=== PATIENT | male | born 1955 | race Caucasian/White ===

== ENCOUNTER 2017-03-22 11:46 | Inpatient (IN) | payer OTHER ==
[~2017-03-22] VITALS: Ht 185.4 cm; Wt 153.3 kg
[~2017-03-22 11:46] MED LIST: ACETAMINOPHEN/H1 TA6 PO; APAP/HYDROCODON1 T13 PO; ASPIRIN81 MG PO; BACO TOP; BAY PO; CEFTIN500 MG PO; CIPRO250 MG PO; COL100 PO; COUMADIN1 MG; DIF100 PO; DUONEB3 ML NEB; ECO81 PO; EPOETIN ALFA SQ; FER300 PO; HEP5I SC; HIBICLENS118 ML TOP; IPRATROPIUM BROM3 M2 INH; LABETALOL HCL200 MG PO; LAC PO; LEV250 PO; LEVOTHYROXIN0.025 M2 PO; LEXAPRO10 MG PO; LOT1C TOP; NEP PO; PHOS PO; PHOSLO667 MG PO; PRI20 PO; ROC25 PO; SIMVASTATIN20 M1 PO; SYN25 PO; SYNTHROID0.025 MG PO; VITAMIN D1000 I1 PO; VITAMIN-D1000 IU PO; ZOC20 PO; ZOSYN2.25 GM/50 IV; [UNRECOGNIZED DRUG - OTHER] SQ
[2017-03-22 12:41] LABS: BASOPHIL % 0.5 % (0-2); PLATELET COUNT 229 x10^3mcL (130-400)
[2017-03-22 12:50] LABS: AMPHETAMINE QUAL UR NONE DETECTED (NEG <=1000)
[2017-03-22 12:53] LABS: microscopic required? YES; urine erythrocyte 1+ (NEGATIVE)
[2017-03-22 13:03] LABS: ALBUMIN 3.5 g/dL (3.4-5.0); BILIRUBIN TOTAL 0.5 mg/dL (0.20-1.00); CALCIUM 9.1 mg/dL (8.5-10.1); CARBON DIOXIDE 34.9 mmol/L (21-32); MAGNESIUM 2.2 mg/dL (1.8-2.4); POTASSIUM SERUM 3.9 mmol/L (3.5-5.1); TOTAL PROTEIN, SERUM 7.9 g/dL (6.4-8.2)
[2017-03-22 13:04] LABS: CREATININE SERUM 5.8 mg/dL (0.7-1.3)
[2017-03-22 13:06] LABS: RED CELL DISTRIBUTION WIDTH 18.2 % (11.5-14.5)
[2017-03-22] MEDS ORDERED: NORCO1 TA2 PO ×2 (15:06→15:13)
[2017-03-22] MEDS ORDERED: ACIDOPHILUS-PE1 EAC2 PO (15:06)
[2017-03-22] MEDS ORDERED: ALBUTEROL SULFAT3 ML NEB (15:07)
[2017-03-22] MEDS ORDERED: D-20001 TAB PO (15:08)
[2017-03-22] MEDS ORDERED: C500500 MG PO (15:08)
[2017-03-22] MEDS ORDERED: MASON NATURAL1000 IU PO (15:08)
[2017-03-22] MEDS ORDERED: ASPIR 8181 MG PO (15:08)
[2017-03-22] MEDS ORDERED: LABETALOL HYDR300 MG PO (15:09)
[2017-03-22] MEDS ORDERED: PHOSLO667 MG PO (15:09)
[2017-03-22] MEDS ORDERED: SIMVASTATIN20 M1 PO (15:09)
[2017-03-22] MEDS ORDERED: LEVOTHYROXIN0.025 M2 PO (15:10)
[2017-03-22] MEDS ORDERED: TYLENOL325 M1 PO (15:10)
[2017-03-22 15:40] VITALS: Ht 185.4 cm; Wt 153.3 kg
[2017-03-22 16:06] VITALS: BP 135/70
[2017-03-22 16:41] VITALS: BP 135/70
[2017-03-22 20:38] VITALS: BP 129/75
[2017-03-23 05:31] VITALS: BP 132/75
[2017-03-23 07:28] LABS: PLATELET COUNT 203 x10^3mcL (130-400)
[2017-03-23 07:36] LABS: BASOPHIL % 0 % (0-2); RED CELL DISTRIBUTION WIDTH 18.2 % (11.5-14.5)
[2017-03-23 07:46] LABS: CALCIUM 8.8 mg/dL (8.5-10.1); CARBON DIOXIDE 26.4 mmol/L (21-32); POTASSIUM SERUM 4.6 mmol/L (3.5-5.1)
[2017-03-23 07:51] LABS: CREATININE SERUM 6.8 mg/dL (0.7-1.3)
[2017-03-23 08:53] VITALS: BP 119/60
[2017-03-23 14:05] VITALS: BP 117/60
[2017-03-23 17:39] VITALS: BP 120/52
[2017-03-23 21:43] VITALS: BP 132/57
[2017-03-24 06:05] VITALS: BP 120/57
[2017-03-24 09:30] VITALS: BP 142/74
[2017-03-24 13:46] VITALS: BP 118/59
[2017-03-24 17:52] VITALS: BP 126/60
[2017-03-24 21:16] VITALS: BP 123/64
[2017-03-25 05:44] VITALS: BP 118/64
[2017-03-25 06:28] LABS: CALCIUM 8.4 mg/dL (8.5-10.1); CARBON DIOXIDE 25.8 mmol/L (21-32); POTASSIUM SERUM 4.3 mmol/L (3.5-5.1)
[2017-03-25 06:35] LABS: BASOPHIL % 0.1 % (0-2); PLATELET COUNT 185 x10^3mcL (130-400)
[2017-03-25 06:46] LABS: CREATININE SERUM 6.2 mg/dL (0.7-1.3)
[2017-03-25 07:03] LABS: RED CELL DISTRIBUTION WIDTH 19.2 % (11.5-14.5)
[2017-03-25 08:00] VITALS: BP 117/61
[2017-03-25 09:07] VITALS: BP 106/52
[2017-03-25 17:19] VITALS: BP 122/68
[2017-03-25 17:46] VITALS: BP 117/63
[2017-03-25 21:52] VITALS: BP 117/65
[2017-03-26 06:16] LABS: BASOPHIL % 0.2 % (0-2); PLATELET COUNT 163 x10^3mcL (130-400)
[2017-03-26 06:25] VITALS: BP 103/65
[2017-03-26 06:33] LABS: CALCIUM 8.2 mg/dL (8.5-10.1); CARBON DIOXIDE 30.5 mmol/L (21-32); POTASSIUM SERUM 3.6 mmol/L (3.5-5.1)
[2017-03-26 06:44] LABS: CREATININE SERUM 5.2 mg/dL (0.7-1.3)
[2017-03-26 07:21] LABS: RED CELL DISTRIBUTION WIDTH 18.7 % (11.5-14.5)
[2017-03-26 10:47] VITALS: BP 100/53
[2017-03-26] MEDS ORDERED: LEV500PM IV (12:05)
[2017-03-26] MEDS ORDERED: LAC PO (12:06)
[2017-03-26] MEDS ORDERED: LEVAQUIN750 MG PO (12:10)
[2017-03-26 13:57] VITALS: BP 100/53
[2017-03-26 15:09] VITALS: BP 101/65
== END 2017-03-26 19:14 | DRG 137 ==
LOC: ED 11:46 → MU 15:01 → DU 15:01 → MU 03-24 11:31
PROVIDERS: Emergency Medicine; ADMIT Family Medicine
DX: J69.0 Pneumonitis due to inhalation of food and vomit (principal); N17.0 Acute kidney failure with tubular necrosis; J96.21 Acute and chronic respiratory failure with hypoxia; Z99.81 Dependence on supplemental oxygen; Z68.43 Body mass index [BMI] 50.0-59.9, adult; J45.901 Unspecified asthma with (acute) exacerbation; T83.511A Infection and inflammatory reaction due to indwelling urethral catheter, initial encounter; J44.1 Chronic obstructive pulmonary disease with (acute) exacerbation; I12.0 Hypertensive chronic kidney disease with stage 5 chronic kidney disease or end stage renal disease; N18.6 End stage renal disease; G47.33 Obstructive sleep apnea (adult) (pediatric); E78.5 Hyperlipidemia, unspecified; G89.29 Other chronic pain; Q63.1 Lobulated, fused and horseshoe kidney; M54.9 Dorsalgia, unspecified; Z79.82 Long term (current) use of aspirin; Z99.2 Dependence on renal dialysis; Z87.440 Personal history of urinary (tract) infections; Z87.891 Personal history of nicotine dependence; Z22.322 Carrier or suspected carrier of Methicillin resistant Staphylococcus aureus; Z88.8 Allergy status to other drugs, medicaments and biological substances; Z83.3 Family history of diabetes mellitus; Z82.49 Family history of ischemic heart disease and other diseases of the circulatory system; J96.22 Acute and chronic respiratory failure with hypercapnia; E66.01 Morbid (severe) obesity due to excess calories; D64.9 Anemia, unspecified
CPT/HCPCS: 36600; 82962; 83880; 97110-GP; 97116-GP; 97530-GP; J0885-EC; J1644; J1956; J2920; J2930; J7030; J7613; J7620; J7644

== ENCOUNTER 2017-03-27 12:46 | Observation (INO) | payer OTHER ==
[~2017-03-27] VITALS: Ht 185.4 cm; Wt 158.0 kg
[~2017-03-27 12:46] MED LIST changes: +ACIDOPHILUS-PE1 EAC2 PO; +ALBUTEROL SULFAT3 ML NEB; +ASPIR 8181 MG PO; +C500500 MG PO; +D-20001 TAB PO; +LABETALOL HYDR300 MG PO; +LEV500PM IV; +LEVAQUIN750 MG PO; +MASON NATURAL1000 IU PO; +NORCO1 TA2 PO; +TYLENOL325 M1 PO
[2017-03-27 13:08] LABS: BASOPHIL % 0.4 % (0-2); PLATELET COUNT 218 x10^3mcL (130-400)
[2017-03-27 13:11] LABS: RED CELL DISTRIBUTION WIDTH 18.5 % (11.5-14.5)
[2017-03-27 13:32] LABS: ALBUMIN 3.5 g/dL (3.4-5.0); BILIRUBIN TOTAL 0.51 mg/dL (0.20-1.00); CALCIUM 8.2 mg/dL (8.5-10.1); TOTAL PROTEIN, SERUM 7.2 g/dL (6.4-8.2)
[2017-03-27 13:54] LABS: CARBON DIOXIDE 30.3 mmol/L (21-32); POTASSIUM SERUM 3.6 mmol/L (3.5-5.1)
[2017-03-27 14:53] LABS: CREATININE SERUM 4.6 mg/dL (0.7-1.3)
[2017-03-27 16:38] VITALS: BP 102/63; Ht 185.4 cm; Wt 158.0 kg
[2017-03-27 17:01] VITALS: BP 102/63
[2017-03-27 21:42] VITALS: BP 98/49
[2017-03-28] VITALS (7 sets, daily range): BP systolic 96–117; BP diastolic 44–76
[2017-03-28 06:16] LABS: BASOPHIL % 0.4 % (0-2); PLATELET COUNT 162 x10^3mcL (130-400)
[2017-03-28 06:42] LABS: RED CELL DISTRIBUTION WIDTH 18.5 % (11.5-14.5)
[2017-03-28 06:43] LABS: CALCIUM 8.3 mg/dL (8.5-10.1); CARBON DIOXIDE 28.5 mmol/L (21-32); CHOLESTEROL/HDL RATIO 3.3; POTASSIUM SERUM 3.8 mmol/L (3.5-5.1)
[2017-03-28 06:53] LABS: CREATININE SERUM 5.9 mg/dL (0.7-1.3)
== END 2017-03-28 22:24 | DRG 203 ==
LOC: ED 12:46 → DU 15:21
PROVIDERS: ADMIT Family Medicine
DX: M94.0 Chondrocostal junction syndrome [Tietze] (principal); N17.0 Acute kidney failure with tubular necrosis; J69.0 Pneumonitis due to inhalation of food and vomit; K21.9 Gastro-esophageal reflux disease without esophagitis; Z68.43 Body mass index [BMI] 50.0-59.9, adult; E03.9 Hypothyroidism, unspecified; N39.0 Urinary tract infection, site not specified; I12.0 Hypertensive chronic kidney disease with stage 5 chronic kidney disease or end stage renal disease; G47.33 Obstructive sleep apnea (adult) (pediatric); J44.9 Chronic obstructive pulmonary disease, unspecified; N18.6 End stage renal disease; Z99.3 Dependence on wheelchair; Z99.2 Dependence on renal dialysis; Z79.82 Long term (current) use of aspirin; Z99.81 Dependence on supplemental oxygen; Q63.1 Lobulated, fused and horseshoe kidney; Z87.891 Personal history of nicotine dependence
CPT/HCPCS: 82962; 83880; 94150; G0378; J0885-EC; J1644; J1956; J7030; J7620; Q0092

== ENCOUNTER 2018-01-13 11:01 | Inpatient (IN) | payer OTHER ==
[~2018-01-13] VITALS: Ht 185.4 cm; Wt 157.6 kg
[2018-01-13 11:31] LABS: BASOPHIL % 0.3 % (0-2); PLATELET COUNT 158 x10^3mcL (130-400); RED CELL DISTRIBUTION WIDTH 18.7 % (11.5-14.5)
[2018-01-13 11:51] LABS: ALBUMIN 3.3 g/dL (3.4-5.0); BILIRUBIN TOTAL 0.5 mg/dL (0.20-1.00); CALCIUM 8.5 mg/dL (8.5-10.1); POTASSIUM SERUM 4.1 mmol/L (3.5-5.1); TOTAL PROTEIN, SERUM 7.5 g/dL (6.4-8.2)
[2018-01-13 12:03] LABS: CREATININE SERUM 8.3 mg/dL (0.7-1.3)
[2018-01-13 12:28] LABS: UA SPECIFIC GRAVITY 1.015 (1.005-1.035); microscopic required? YES
[2018-01-13 12:29] LABS: urine erythrocyte 3+ (NEGATIVE)
[2018-01-13 13:52] LABS: T3 TOTAL 0.38 ng/mL
[2018-01-13 13:52] LABS: AMPHETAMINE QUAL UR NONE DETECTED (NEG <=1000)
[2018-01-13 14:07] VITALS: BP 129/66
[2018-01-13 14:27] LABS: MAGNESIUM 2.5 mg/dL (1.8-2.4); PHOSPHOROUS 4.7 mg/dL (2.5-4.9)
[2018-01-13 14:28] VITALS: BP 115/51
[2018-01-13 14:38] LABS: CHOLESTEROL/HDL RATIO 4.7
[2018-01-13 14:40] LABS: FREE T4 0.77 ng/dL (0.76-1.46); FREE THYROXINE INDEX 1.9 ug/dL (1.4-4.5); T4(THYROXINE) 5.5 ug/dL (4.7-13.3)
[2018-01-13 15:32] LABS: IRON 60 ug/dL (65-170)
[2018-01-13 15:34] LABS: TOTAL IRON BINDING CAPACITY 229 ug/dL (250-450)
[2018-01-13 15:53] LABS: RED BLOOD CELLS 2.51 M/mm3 (4.52-5.90)
[2018-01-13 17:42] VITALS: BP 116/53; BP 16/53
[2018-01-13 21:12] VITALS: BP 126/50
[2018-01-14 04:18] VITALS: BP 107/39
[2018-01-14 06:21] LABS: BASOPHIL % 0.1 % (0-2); PLATELET COUNT 173 x10^3mcL (130-400)
[2018-01-14 06:39] LABS: CALCIUM 8.4 mg/dL (8.5-10.1); CARBON DIOXIDE 34.9 mmol/L (21-32); MAGNESIUM 2.6 mg/dL (1.8-2.4); PHOSPHOROUS 6.3 mg/dL (2.5-4.9); POTASSIUM SERUM 4.8 mmol/L (3.5-5.1)
[2018-01-14 07:12] LABS: CREATININE SERUM 9.8 mg/dL (0.7-1.3)
[2018-01-14 07:29] LABS: RED CELL DISTRIBUTION WIDTH 18.3 % (11.5-14.5)
[2018-01-14 09:30] VITALS: BP 146/58
[2018-01-14 14:32] VITALS: BP 139/67
[2018-01-14 18:07] VITALS: BP 143/73
[2018-01-14 22:12] VITALS: BP 138/56
[2018-01-15 06:33] VITALS: BP 125/74
[2018-01-15 06:41] LABS: CALCIUM 8.1 mg/dL (8.5-10.1); CARBON DIOXIDE 34.6 mmol/L (21-32); MAGNESIUM 2.8 mg/dL (1.8-2.4); PHOSPHOROUS 7.3 mg/dL (2.5-4.9); POTASSIUM SERUM 4.8 mmol/L (3.5-5.1)
[2018-01-15 06:59] LABS: BASOPHIL % 0.6 % (0-2); PLATELET COUNT 177 x10^3mcL (130-400)
[2018-01-15 07:02] LABS: RED CELL DISTRIBUTION WIDTH 18.4 % (11.5-14.5)
[2018-01-15 09:45] LABS: CREATININE SERUM 11.3 mg/dL (0.7-1.3)
[2018-01-15 09:55] VITALS: BP 132/65
[2018-01-15 13:42] VITALS: BP 133/52
[2018-01-15 17:30] VITALS: BP 134/62
[2018-01-15 20:30] VITALS: BP 124/68
[2018-01-16 05:38] VITALS: BP 115/67
[2018-01-16 07:18] LABS: CALCIUM 8.5 mg/dL (8.5-10.1); CARBON DIOXIDE 29.5 mmol/L (21-32); MAGNESIUM 2.5 mg/dL (1.8-2.4); PHOSPHOROUS 5.6 mg/dL (2.5-4.9); POTASSIUM SERUM 4.6 mmol/L (3.5-5.1)
[2018-01-16 07:20] LABS: CREATININE SERUM 8.8 mg/dL (0.7-1.3)
[2018-01-16 07:32] LABS: BASOPHIL % 0.4 % (0-2); PLATELET COUNT 182 x10^3mcL (130-400)
[2018-01-16 07:49] LABS: RED CELL DISTRIBUTION WIDTH 18.1 % (11.5-14.5)
[2018-01-16 08:53] VITALS: Ht 185.4 cm; Wt 157.6 kg
[2018-01-16 09:00] VITALS: BP 128/63
[2018-01-16 13:24] VITALS: BP 124/69
[2018-01-16 16:00] VITALS: BP 113/56
[2018-01-16 21:37] VITALS: BP 118/48
[2018-01-17] VITALS (7 sets, daily range): BP systolic 113–134; BP diastolic 45–79
[2018-01-17 06:58] LABS: CALCIUM 8.7 mg/dL (8.5-10.1); CARBON DIOXIDE 28.4 mmol/L (21-32); MAGNESIUM 2.5 mg/dL (1.8-2.4); POTASSIUM SERUM 4.7 mmol/L (3.5-5.1)
[2018-01-17 07:10] LABS: BASOPHIL % 0.5 % (0-2); PLATELET COUNT 176 x10^3mcL (130-400); RED CELL DISTRIBUTION WIDTH 18.4 % (11.5-14.5)
[2018-01-17 08:40] LABS: CREATININE SERUM 10.2 mg/dL (0.7-1.3)
[2018-01-17] MEDS ORDERED: APR10 PO (15:35)
[2018-01-17] MEDS ORDERED: LAC PO (15:36)
[2018-01-17] MEDS ORDERED: [UNRECOGNIZED DRUG - CODE] IV (15:38)
[2018-01-18 05:22] VITALS: BP 120/70
[2018-01-18 06:46] LABS: CALCIUM 8.8 mg/dL (8.5-10.1); CARBON DIOXIDE 32.4 mmol/L (21-32); MAGNESIUM 2.1 mg/dL (1.8-2.4); PHOSPHOROUS 5.4 mg/dL (2.5-4.9); POTASSIUM SERUM 4.7 mmol/L (3.5-5.1)
[2018-01-18 06:57] LABS: CREATININE SERUM 7.7 mg/dL (0.7-1.3)
[2018-01-18 08:41] VITALS: BP 122/60
[2018-01-18 16:23] VITALS: BP 128/69
[2018-01-18 21:15] VITALS: BP 103/61
[2018-01-19 05:57] VITALS: BP 131/72
[2018-01-19 06:58] LABS: CALCIUM 8.7 mg/dL (8.5-10.1); CARBON DIOXIDE 31.7 mmol/L (21-32); MAGNESIUM 2.4 mg/dL (1.8-2.4); PHOSPHOROUS 6.5 mg/dL (2.5-4.9); POTASSIUM SERUM 4.8 mmol/L (3.5-5.1)
[2018-01-19 07:09] LABS: CREATININE SERUM 9.3 mg/dL (0.7-1.3)
[2018-01-19 08:21] VITALS: BP 101/63
[2018-01-19 12:15] VITALS: BP 120/66
[2018-01-19 16:10] VITALS: BP 128/62
[2018-01-19 21:39] VITALS: BP 104/62
[2018-01-20 05:56] VITALS: BP 135/72
[2018-01-20 07:38] LABS: BASOPHIL % 0.8 % (0-2); PLATELET COUNT 178 x10^3mcL (130-400); RED CELL DISTRIBUTION WIDTH 18.1 % (11.5-14.5)
[2018-01-20 07:42] LABS: CALCIUM 8.6 mg/dL (8.5-10.1); CARBON DIOXIDE 28.4 mmol/L (21-32); MAGNESIUM 2.5 mg/dL (1.8-2.4); PHOSPHOROUS 6.5 mg/dL (2.5-4.9); POTASSIUM SERUM 4.6 mmol/L (3.5-5.1)
[2018-01-20 08:18] LABS: CREATININE SERUM 10.6 mg/dL (0.7-1.3)
[2018-01-20 18:02] VITALS: BP 126/64
[2018-01-20 20:45] VITALS: BP 126/71
[2018-01-21 06:13] VITALS: BP 119/74
[2018-01-21 07:13] LABS: CALCIUM 8.7 mg/dL (8.5-10.1); CARBON DIOXIDE 32.5 mmol/L (21-32); MAGNESIUM 2.1 mg/dL (1.8-2.4); PHOSPHOROUS 5.3 mg/dL (2.5-4.9)
[2018-01-21 07:19] LABS: CREATININE SERUM 7.1 mg/dL (0.7-1.3)
[2018-01-21 08:38] VITALS: BP 112/59
[2018-01-21] MEDS ORDERED: NEU100 PO (15:24)
[2018-01-21 16:29] VITALS: BP 133/67
[2018-01-21 17:16] VITALS: BP 112/59
== END 2018-01-21 20:21 | DRG 133 ==
LOC: ED 11:01 → DU 12:54 → MU 01-18 18:55
PROVIDERS: Emergency Medicine; Family Medicine
PROC: 5A1D70Z Performance of Urinary Filtration, Intermittent, Less than 6 Hours Per Day (ICD-10-PCS; principal; 2018-01-15)
PROC: 5A1D70Z Performance of Urinary Filtration, Intermittent, Less than 6 Hours Per Day (ICD-10-PCS; 2018-01-17)
PROC: 5A1D70Z Performance of Urinary Filtration, Intermittent, Less than 6 Hours Per Day (ICD-10-PCS; 2018-01-20)
DX: J96.01 Acute respiratory failure with hypoxia (principal); N17.0 Acute kidney failure with tubular necrosis; I13.2 Hypertensive heart and chronic kidney disease with heart failure and with stage 5 chronic kidney disease, or end stage renal disease; G93.41 Metabolic encephalopathy; J96.02 Acute respiratory failure with hypercapnia; N18.6 End stage renal disease; E66.01 Morbid (severe) obesity due to excess calories; I50.9 Heart failure, unspecified; E87.8 Other disorders of electrolyte and fluid balance, not elsewhere classified; E44.1 Mild protein-calorie malnutrition; E83.39 Other disorders of phosphorus metabolism; E83.41 Hypermagnesemia; G47.33 Obstructive sleep apnea (adult) (pediatric); N39.0 Urinary tract infection, site not specified; D63.1 Anemia in chronic kidney disease; J44.9 Chronic obstructive pulmonary disease, unspecified; G89.29 Other chronic pain; M54.9 Dorsalgia, unspecified; Z87.442 Personal history of urinary calculi; Z88.1 Allergy status to other antibiotic agents; Z99.2 Dependence on renal dialysis; Z83.3 Family history of diabetes mellitus; Z82.49 Family history of ischemic heart disease and other diseases of the circulatory system; Z81.1 Family history of alcohol abuse and dependence; Z84.1 Family history of disorders of kidney and ureter; Z87.891 Personal history of nicotine dependence; Z68.43 Body mass index [BMI] 50.0-59.9, adult
CPT/HCPCS: 36600; 83880; 84439; 94150; 97110-GP; 97530-GP; J0696; J0713; J0885-EC; J7030; J7620; Q0092